=== PATIENT | male | born 1990 | race African-American/Black ===

== ENCOUNTER 2019-02-23 12:22 | Emergency (ER) | payer SELFPAY ==
[~2019-02-23] VITALS: Ht 188 cm; Wt 72.6 kg
--- NOTE | 2019-02-23 12:30 | NUR ---
SOB X "COUPLE OF DAYS." WORSE TODAY. RAN OUT OF INHALER. HAS AUDIBLE WHEEZING BILATERALLY. NO ACUTE DISTRESS NOTED. NO OTHER COMPLAINTS AT THIS TIME. FAMILY AT BEDSIDE. READY FOR EVAL.
[2019-02-23] MEDS ORDERED: predniSONE 20 MG TABLET ONE (12:35)
--- NOTE | 2019-02-23 12:35 | NUR ---
RT AT BEDSIDE FOR BREATHING TX
[2019-02-23] MEDS ORDERED: ALBUTEROL FS 2.5 MG/3 ML VIAL.NEB ONE (12:40)
[2019-02-23] MEDS ORDERED: IPRATROPIUM NEB FS 0.5 MG/2.5 ML AMPUL.NEB ONE (12:40)
[2019-02-23] MEDS ORDERED: IPRATROPIUM NEB FS 0.5 MG/2.5 ML AMPUL.NEB NEB ONE (13:00)
[2019-02-23] MEDS ORDERED: predniSONE 20 MG TABLET PO ONE (13:00)
[2019-02-23] MEDS ORDERED: ALBUTEROL FS 2.5 MG/3 ML VIAL.NEB CONTNEB ONE (13:00)
[2019-02-23 14:07] VITALS: BP 112/67
--- NOTE | 2019-02-23 14:07 | NUR ---
Patient discharged to home in stable condition. Written and verbal after care instructions given. Patient verbalizes understanding of instruction.
== END 2019-02-23 14:08 | disposition home or self-care (01) ==
LOC: ER 12:22
DX: J45.909 Unspecified asthma, uncomplicated (principal); Z88.6 Allergy status to analgesic agent
CPT/HCPCS: 94644; 99285; J7512

== ENCOUNTER 2023-02-16 03:45 | Emergency (ER) | payer OTHER ==
[~2023-02-16] VITALS: Ht 188 cm; Wt 72.6 kg
[2023-02-16] MEDS ORDERED: HYDROCODONE/APAP 10/325MG TABLET ONE (04:11)
[2023-02-16] MEDS ORDERED: HYDROCODONE/APAP 10/325MG TABLET PO ONE (04:30)
[2023-02-16] MEDS ORDERED: ALBU8.5H8 INH (05:39)
[2023-02-16] MEDS ORDERED: HYDR-3980 PO (05:39)
[2023-02-16 06:03] VITALS: BP 125/74; TEMP 98; O2SAT 97
== END 2023-02-16 06:03 | disposition home or self-care (01) ==
LOC: ER 03:53
DX: S92.061A Displaced intraarticular fracture of right calcaneus, initial encounter for closed fracture (principal); J45.909 Unspecified asthma, uncomplicated; Z88.8 Allergy status to other drugs, medicaments and biological substances; W13.3XXA Fall through floor, initial encounter; Y93.89 Activity, other specified; Y92.89 Other specified places as the place of occurrence of the external cause; Y99.8 Other external cause status
CPT/HCPCS: 73610-TC; 73630-TC

== ENCOUNTER 2023-09-27 16:34 | Emergency (ER) | payer OTHER ==
[~2023-09-27] VITALS: Ht 188 cm; Wt 70.3 kg
[~2023-09-27 16:34] MED LIST: ALBU8.5H8 INH; HYDR-3980 PO
[2023-09-27] MEDS ORDERED: ALBUTEROL FS 2.5 MG/3 ML VIAL.NEB ONE (17:10)
[2023-09-27] MEDS ORDERED: IPRATROPIUM NEB FS 0.5 MG/2.5 ML AMPUL.NEB ONE (17:10)
[2023-09-27 17:12] VITALS: O2SAT 96
[2023-09-27] MEDS: ALBUTEROL FS 2.5 MG/3 ML VIAL.NEB NEB ONE (17:12)
[2023-09-27] MEDS: IPRATROPIUM NEB FS 0.5 MG/2.5 ML AMPUL.NEB NEB ONE (17:12)
[2023-09-27 17:27] VITALS: O2SAT 99
[2023-09-27 17:28] VITALS: O2SAT 99
[2023-09-27 17:43] VITALS: O2SAT 100
[2023-09-27] MEDS ORDERED: predniSONE 20 MG TABLET ONE (17:45)
[2023-09-27] MEDS ORDERED: ACETAMINOPHEN ES 500 MG TABLET ONE (17:46)
[2023-09-27] MEDS: predniSONE 20 MG TABLET PO ONE (17:49)
[2023-09-27] MEDS: ACETAMINOPHEN ES 500 MG TABLET PO ONE (17:50)
[2023-09-27] MEDS ORDERED: HYDROCODONE/APAP 5/325MG TABLET ONE (18:33)
[2023-09-27] MEDS: HYDROCODONE/APAP 5/325MG TABLET PO ONE (18:35)
[2023-09-27] MEDS ORDERED: ACET-2605 PO (20:13)
[2023-09-27] MEDS ORDERED: ALBU8.5H8 INH (20:13)
[2023-09-27] MEDS ORDERED: PRED20TA PO (20:13)
[2023-09-27 20:27] VITALS: BP 131/65; TEMP 98.4; O2SAT 100
== END 2023-09-27 20:27 | disposition home or self-care (01) ==
LOC: ER 16:44
DX: J45.909 Unspecified asthma, uncomplicated (principal); M79.671 Pain in right foot; G89.29 Other chronic pain; Z88.8 Allergy status to other drugs, medicaments and biological substances; Z20.822 Contact with and (suspected) exposure to COVID-19
CPT/HCPCS: 99285; 71045; 87426; 93005; 87804 ×2; 94640 ×2; J7512